=== PATIENT | female | born 1980 | race Two or more races ===

== ENCOUNTER 2023-01-15 12:40 | Observation (INO) | payer SELFPAY ==
[2023-01-15] MEDS ORDERED: Sodium Chloride 0.9% 10 ML Syringe FLUSH PRN (13:55)
[2023-01-15] MEDS ORDERED: Ketorolac 30 MG/ML SDV IVPUSH ONE (13:57)
[2023-01-15] MEDS ORDERED: Ondansetron 4 MG/2 ML SDV IVPUSH ONE (13:57)
[2023-01-15] MEDS ORDERED: HYDROmorphone 0.5 MG/0.5 ML Syringe IVPUSH ONE ×2 (13:57→16:36)
[2023-01-15] MEDS ORDERED: Sodium Chloride 0.9% 1,000 ML IV SCH (14:00)
[2023-01-15 14:10] LABS: CORONAVIRUS COVID-19 NAA NEGATIVE (NEGATIVE); INFLUENZA A NAA NEGATIVE (NEGATIVE); RESPIRATORY SYNCYTIAL VIR NAA NEGATIVE (NEGATIVE)
[2023-01-15 14:48] LABS: BASOPHILS ABSOLUTE AUTO 0.1 K/mm3 (0.0-0.2); BASOPHILS PERCENT AUTO 0.8 % (0.0-1.0); EOSINOPHILS ABSOLUTE AUTO 0.1 K/mm3 (0.0-0.4); EOSINOPHILS PERCENT AUTO 1.1 % (0.0-6.0); HEMATOCRIT 35.3 % (37.0-47.0); HEMOGLOBIN 11.4 gm/dl (12.0-16.0); IMMATURE GRAN ABSOLUTE AUTO 0.03 K/mm3 (0.00-0.05); IMMATURE GRAN PERCENT AUTO 0.3 % (0.0-0.4); LYMPHOCYTES ABSOLUTE AUTO 3.1 K/mm3 (1.0-4.8); LYMPHOCYTES PERCENT AUTO 31.2 % (24.0-44.0); MEAN CORPUSCULAR HEMOGLOBIN 24.5 pg (28.0-32.0); MEAN CORPUSCULAR HGB CONC 32.3 g/dl (32.0-36.0); MEAN CORPUSCULAR VOLUME 75.9 fl (83.0-99.0); MEAN PLATELET VOLUME 8.7 fl (9.4-12.3); MONOCYTES ABSOLUTE AUTO 0.5 K/mm3 (0.0-0.8); MONOCYTES PERCENT AUTO 5.2 % (0.0-8.0); NEUTROPHILS PERCENT AUTO 61.4 % (41.0-71.0); PLATELET COUNT,PLT 371 K/mm3 (150-400); RED BLOOD CELL COUNT 4.65 M/mm3 (4.10-5.30)
[2023-01-15 15:11] LABS: A/G RATIO 0.7 (1-2); ALBUMIN 3.4 g/dl (3.4-5.0); BILIRUBIN TOTAL 0.3 mg/dL (0.2-1.0); CALCIUM 9.1 mg/dL (8.5-10.1); CREATININE 0.8 mg/dL (0.55-1.02); EST CRCL DRUG DOSING (CG) 66.47 mL/min; PROTEIN TOTAL,TP 8.4 g/dl (6.4-8.2)
[2023-01-15 15:43] LABS: APPEARANCE,URINE CLEAR (Clear); BILIRUBIN,URINE NEGATIVE (Negative); COLOR,URINE YELLOW (Yellow); GLUCOSE,URINE NEGATIVE (Negative); KETONES,URINE NEGATIVE (Negative); LEUKOCYTE ESTERASE,URINE NEGATIVE (Negative); NITRITE,URINE NEGATIVE (Negative); OCCULT BLOOD,URINE 2+ (Negative); PROTEIN,URINE NEGATIVE (Negative); UROBILINOGEN,URINE 0.2 (0.2-1.0)
[2023-01-15 16:07] LABS: BACTERIA,URINE MODERATE /hpf (FEW); MUCUS,URINE FEW /hpf (FEW); SQUAMOUS EPITHELIAL CELLS,UR 0-5 /hpf (0-5); WBC,URINE 0-5 /hpf (0-5)
[2023-01-15] MEDS ORDERED: Pantoprazole 40 MG Vial IVPUSH ONE (16:36)
[2023-01-15] MEDS ORDERED: Alum Hydrox/Mag Hydrox/Simeth 30 ML, Lidocaine 2% 15 ML PO ONE ×2 (16:37)
[2023-01-15] MEDS ORDERED: fentaNYL 100 MCG/2 ML SDV IVPUSH ONE (17:13)
[2023-01-15] MEDS ORDERED: Dicyclomine 10 MG Cap PO ONE (17:46)
[2023-01-15] MEDS ORDERED: Ondansetron 4 MG/2 ML SDV IVPUSH PRN (19:31)
[2023-01-15] MEDS: Sodium Chloride 0.9% 1,000 ML IV SCH (21:24)
[2023-01-15] MEDS ORDERED: Dicyclomine 10 MG Cap PO PRN (22:16)
[2023-01-15] MEDS ORDERED: HYDROmorphone 0.5 MG/0.5 ML Syringe IVPUSH PRN (22:18)
[2023-01-16] MEDS: Sodium Chloride 0.9% 1,000 ML IV SCH ×2 (00:51→14:50)
[2023-01-16 05:34] LABS: BASOPHILS ABSOLUTE AUTO 0.1 K/mm3 (0.0-0.2); BASOPHILS PERCENT AUTO 0.7 % (0.0-1.0); EOSINOPHILS ABSOLUTE AUTO 0.1 K/mm3 (0.0-0.4); EOSINOPHILS PERCENT AUTO 1.1 % (0.0-6.0); HEMATOCRIT 33.2 % (37.0-47.0); HEMOGLOBIN 10.7 gm/dl (12.0-16.0); IMMATURE GRAN ABSOLUTE AUTO 0.02 K/mm3 (0.00-0.05); IMMATURE GRAN PERCENT AUTO 0.2 % (0.0-0.4); LYMPHOCYTES ABSOLUTE AUTO 2.3 K/mm3 (1.0-4.8); LYMPHOCYTES PERCENT AUTO 25.3 % (24.0-44.0); MEAN CORPUSCULAR HEMOGLOBIN 24.5 pg (28.0-32.0); MEAN CORPUSCULAR HGB CONC 32.2 g/dl (32.0-36.0); MEAN PLATELET VOLUME 9.5 fl (9.4-12.3); MONOCYTES ABSOLUTE AUTO 0.6 K/mm3 (0.0-0.8); MONOCYTES PERCENT AUTO 6.9 % (0.0-8.0); NEUTROPHILS ABSOLUTE AUTO 5.9 K/mm3 (1.8-7.7); NEUTROPHILS PERCENT AUTO 65.8 % (41.0-71.0); PLATELET COUNT,PLT 299 K/mm3 (150-400); RED BLOOD CELL COUNT 4.37 M/mm3 (4.10-5.30)
[2023-01-16 05:55] LABS: A/G RATIO 0.6 (1-2); ALBUMIN 2.9 g/dl (3.4-5.0); ANION GAP 11.8 (5-15); BILIRUBIN TOTAL 0.5 mg/dL (0.2-1.0); BUN/CREATININE RATIO 17.5 (14-18); CALCIUM 8.4 mg/dL (8.5-10.1); CREATININE 0.8 mg/dL (0.55-1.02); EST CRCL DRUG DOSING (CG) 73.19 mL/min; POTASSIUM,K 3.8 mEq/L (3.5-5.1); PROTEIN TOTAL,TP 7.4 g/dl (6.4-8.2)
[2023-01-16] MEDS ORDERED: Pantoprazole 40 MG in Sodium Chloride 0.9% 100 ML IV ONE (09:52)
[2023-01-16] MEDS ORDERED: Pantoprazole 40 MG Vial IV ONE ×2 (10:15→10:30)
[2023-01-16] MEDS: Ketorolac 30 MG/ML SDV IVPUSH SCH ×2 (10:36→14:46)
[2023-01-16] MEDS: Promethazine 25 MG Tab PO SCH ×2 (10:36→17:11)
[2023-01-16] MEDS: Pantoprazole 40 MG Tab.CR PO SCH (17:11)
[2023-01-16] MEDS: Acetaminophen 325 MG Tab PO PRN (21:51)
[2023-01-17] MEDS: Promethazine 25 MG Tab PO SCH ×3 (02:46→18:54)
[2023-01-17] MEDS: Sodium Chloride 0.9% 1,000 ML IV SCH (04:19)
[2023-01-17] MEDS: Acetaminophen 325 MG Tab PO PRN (04:33)
[2023-01-17] MEDS: Pantoprazole 40 MG Tab.CR PO SCH ×2 (05:08→16:52)
[2023-01-17] MEDS ORDERED: Ondansetron 4 MG/2 ML SDV IVPUSH ONE (09:00)
[2023-01-17] MEDS ORDERED: Acetaminophen 650 MG Supp RECTAL ONE (09:50)
[2023-01-17] MEDS ORDERED: Lactated Ringers 1,000 ML IV ONE (11:30)
[2023-01-17] MEDS ORDERED: Propofol 200 MG/20 ML SDV ONE (11:44)
[2023-01-17] MEDS ORDERED: Lidocaine 1% 6 ML ONE (11:47)
[2023-01-17] MEDS ORDERED: fentaNYL 100 MCG/2 ML SDV ONE (11:47)
[2023-01-17] MEDS ORDERED: Polyethylene Glycol 3350 Powder 17 GM Packet PO ONE (12:42)
== END 2023-01-17 20:13 | disposition home or self-care (01) ==
LOC: JD.ED 12:40 → JD.MS 19:33
PROVIDERS: ADMIT Pediatrics; ATTEND Pediatrics
DX: K29.50 Unspecified chronic gastritis without bleeding (principal); R51.9 Headache, unspecified; R11.2 Nausea with vomiting, unspecified; I10 Essential (primary) hypertension; E03.9 Hypothyroidism, unspecified; Z20.822 Contact with and (suspected) exposure to COVID-19; Z90.49 Acquired absence of other specified parts of digestive tract; Z79.890 Hormone replacement therapy; Z79.899 Other long term (current) drug therapy
CPT/HCPCS: 0241U; 36415; 43239; 74176; 80053; 81001; 83690; 84484; 84703; 85025; 93005; 96374; 96375; 96376; 99285; A9270; C9113; G0378; J1170; J1885; J2405; J2704; J3010; J3490; J7030; J7120; J8597; 00731; 93010; 99284